=== PATIENT | female | born 1935 | race Caucasian/White ===

== ENCOUNTER 2022-04-06 11:29 | Observation (INO) ==
[2022-04-06] MEDS ORDERED: Naloxone 0.4 MG/ML INJ IVP PRN (14:30)
[2022-04-06] MEDS ORDERED: Ondansetron 4 MG/2 ML VIAL IVP PRN (14:30)
[2022-04-06] MEDS ORDERED: Nitroglycerin 0.4 MG TAB.SUBL SL PRN (14:31)
[2022-04-06] MEDS ORDERED: Acetaminophen 325 MG TABLET PO PRN (14:55)
[2022-04-06 15:38] LABS: Calcium 9.1 mg/dL (8.6-10.3); Potassium 3.6 mEq/L (3.5-5.1)
[2022-04-06] MEDS: Metoprolol XL (24 HR) Succ 25 MG TAB.ER.24H PO SCH (16:26)
[2022-04-07 03:34] LABS: Basophils % 0.5 %; Eosinophils # 0.3 K/mcL (0.0-0.6); Eosinophils % 5.1 %; Hematocrit 40.7 % (35.3-44.9); Hemoglobin 13.1 g/dL (11.5-15.4); Lymphocytes # 2.6 K/mcL (0.6-4.6); Lymphocytes % 44.5 %; Mean Corpuscular HGB Conc 32.2 g/dL (31.6-35.5); Mean Corpuscular Hemoglobin 33.8 pg (28.0-33.3); Mean Corpuscular Volume 104.9 fL (83.0-100.0); Mean Platelet Volume 11.3 fL (9.4-12.4); Monocytes # 1.2 K/mcL (0.0-1.3); Monocytes % 19.6 %; Neutrophils # 1.8 K/mcL (1.6-8.9); Platelet Count 170 K/mcL (140-400); Red Blood Count 3.88 M/mcL (3.82-4.97); Red Cell Distribution Width 13.2 % (11.5-14.5); Segmented Neutrophils % 30.3 %; White Blood Count 5.9 K/mcL (4.3-11.1)
[2022-04-07 03:42] LABS: Chol/HDL Ratio 3.4 (0-4.9); Magnesium 1.9 mg/dL (1.6-2.6); Phosphorous 2.9 mg/dL (2.7-4.5)
[2022-04-07] MEDS ORDERED: Regadenoson 0.4 MG/5 ML SYRINGE IVP ONE (06:07)
[2022-04-07] MEDS: Metoprolol XL (24 HR) Succ 25 MG TAB.ER.24H PO SCH (08:02)
[2022-04-07 10:50] VITALS: BP 145/75; PULSE 57; TEMP 97.6; O2SAT 95
== END 2022-04-07 17:47 | disposition home or self-care (01) ==
LOC: 3BNU
PROVIDERS: ADMIT Internal Medicine; ATTEND Internal Medicine